=== PATIENT | male | born 1990 | race Caucasian/White ===

== ENCOUNTER 2019-01-01 13:18 | Emergency (ER) | payer OTHER ==
[~2019-01-01] VITALS: Ht 177.8 cm; Wt 76.9 kg
--- NOTE | 2019-01-01 14:00 | PHYS DOC ---
Adult General Chief Complaint Chief Complaint: HEADACHE HPI HPI 28-year-old male presents with headache for the last 3 days. Patient went to his PCP with concern of sinus infection. The advised that he come the emergency room because his heart rate was 50. Patient has no official diagnosis of abnormal bradycardia. Patient states he feels he has had nausea, vomiting, and headache the last 3 days. He had a fever of 100 yesterday. At this time his primary concern is that he has facial pressure just under his eyes. His headache is improved at this time but was located just behind his eyes. He does not have a history of chronic headaches. He denies trauma or fall. Review of Systems Review of Systems Constitutional: Fever[] Eyes: Denies change in visual acuity, redness, or eye pain [] HENT: Nasal congestion, sinus pain[] Respiratory: Denies cough or shortness of breath [] Cardiovascular: No additional information not addressed in HPI [] GI: Denies abdominal pain, nausea, vomiting, bloody stools or diarrhea [] : Denies dysuria or hematuria [] Musculoskeletal: Denies back pain or joint pain [] Integument: Denies rash or skin lesions [] Neurologic: Frontal headache[] Endocrine: Denies polyuria or polydipsia [] All other systems were reviewed and found to be within normal limits, except as documented in this note. Current Medications Current Medications Current Medications Medications (Trade) Dose Ordered Sig/Otilio Start Time Stop Time Status Last Admin Dose Admin Diphenhydramine HCl (Benadryl) 25 mg 1X ONCE 01/01/19 13:45 01/01/19 13:46 UNV Ketorolac Tromethamine (Toradol 30mg Vial) 30 mg 1X ONCE 01/01/19 13:45 01/01/19 13:46 UNV Metoclopramide HCl (Reglan Vial) 10 mg 1X ONCE 01/01/19 13:45 01/01/19 13:46 UNV Sodium Chloride 1,000 ml @ 1,000 mls/hr 1X ONCE 01/01/19 13:45 01/01/19 14:44 UNV Physical Exam Physical Exam Constitutional: Well developed, well nourished, no acute distress, non-toxic appearance. [] HENT: Normocephalic, atraumatic, bilateral external ears normal, oropharynx moist, no oral exudates, nose normal. Left ear tympanic membrane obscured with wax. Right tympanic membrane normal [] Eyes: PERRLA, EOMI, conjunctiva normal, no discharge. [] Neck: Normal range of motion, no tenderness, supple, no stridor. [] Cardiovascular:Heart rate, 50, regular rhythm, no murmur [] Lungs & Thorax: Bilateral breath sounds clear to auscultation [] Abdomen: Bowel sounds normal, soft, no tenderness, no masses, no pulsatile masses. [] Skin: Warm, dry, no erythema, no rash. [] Back: No tenderness, no CVA tenderness. [] Extremities: No tenderness, no cyanosis, no clubbing, ROM intact, no edema. [] Neurologic: Alert and oriented X 3, normal motor function, normal sensory function, no focal deficits noted. [] Psychologic: Affect normal, judgement normal, mood normal. [] EKG EKG [] Radiology/Procedures Radiology/Procedures [] Impressions: Exam performed: CT scan of the head without contrast. Date of Service: 01/01/2019. Comparison: None available. Clinical History: Headache, low blood pressure. Technique: Helical acquisitions are obtained from the foramen magnum to the vertex without intravenous administration of contrast. Findings: The ventricles are midline without evidence of dilatation. Normal hicks-white differentiation is maintained. There is no extra axial fluid collection, intraparenchymal hemorrhage or mass lesion. The visualized portions of the orbits, paranasal sinuses and the mastoid air cells appear clear. The calvarium is intact. Impression: 1. No acute intracranial process detected. RS Compliance Statement: One or more of the following individualized dose reduction techniques were utilized for this examination: 1. Automated exposure control 2. Adjustment of the mA and/or kV according to patient size 3. Use of iterative reconstruction technique Electronically signed by: Neyda Medina MD (01/01/2019 2:25 PM) [facility] DICTATED AND SIGNED BY: NEYDA MEDINA MD DATE: 01/01/19 4549 CC: CHRIS HAMILTON DO; PCP,NO Course & Med Decision Making Course & Med Decision Making Pertinent Labs and Imaging studies reviewed. (See chart for details) Asians labs are unremarkable. His head CT is unremarkable. I've given 1 L normal saline, 30 mg of Toradol, 25 mg of Benadryl, 10 mg Reglan. He is feeling better at this time. I believe he does has a viral illness and a common ready headache. He is stable for discharge at this time. [] Dragon Disclaimer Dragon Disclaimer This electronic medical record was generated, in whole or in part, using a voice recognition dictation system. Departure Departure: Impression: Primary Impression: Viral syndrome Additional Impression: Headache Disposition: HOME, SELF-CARE Condition: STABLE Referrals: PCP,NO (PCP) Patient Instructions: General Headache Without Cause, [id number], Viral Syndrome Problem Qualifiers Additional Impression: Headache Headache type: other vascular headache Qualified Codes: G44.1 - Vascular headache, not elsewhere classified CHRIS HAMILTON DO Jan 01, 2019 14:00
[2019-01-01 14:08] LABS: BASO # 0.1 x10^3/uL (0.0-0.2); BASO % 1 % (0-3); EOS # 0.3 x10^3/uL (0.0-0.7); EOS % 3 % (0-3); HEMATOCRIT 45.6 % (39.0-53.0); HEMOGLOBIN 15.5 g/dL (13.0-17.5); LYMPH # 0.9 x10^3/uL (1.0-4.8); LYMPH % 9 % (24-48); MEAN CORPUSCULAR HEMOGLOBIN 31 pg (25-35); MEAN CORPUSCULAR HGB CONC 34 g/dL (31-37); MEAN CORPUSCULAR VOLUME 92 fL (79-100); MONO # 1.4 x10^3/uL (0.0-1.1); MONO % 15 % (0-9); NEUT # 7.2 x10^3uL (1.8-7.7); NEUT % 73 % (31-73); PLATELET COUNT 155 x10^3/uL (140-400); RED BLOOD COUNT 4.96 x10^6/uL (4.30-5.70); RED CELL DISTRIBUTION WIDTH 13.6 % (11.5-14.5); WHITE BLOOD COUNT 9.9 x10^3/uL (4.0-11.0)
[2019-01-01] MEDS: METOCLOPRAMIDE HCL 10 MG/2 ML VIAL. IV ONE (14:19)
[2019-01-01] MEDS: IV NORMAL SALINE 1,000ML 1,000 ML IV ONE (14:19)
[2019-01-01] MEDS: diphenhydrAMINE 50 MG/ML VIAL IVP ONE (14:20)
[2019-01-01] MEDS: KETOROLAC 30 MG/ML VIAL. IV ONE (14:20)
[2019-01-01 14:22] LABS: ALBUMIN 3.9 g/dL (3.4-5.0); ALBUMIN/GLOBULIN RATIO 1.2 (1.0-1.7); CALCIUM 9.2 mg/dL (8.5-10.1); CREATININE 0.9 mg/dL (0.7-1.3); TOTAL BILIRUBIN 0.5 mg/dL (0.2-1.0); TOTAL PROTEIN 7.2 g/dL (6.4-8.2)
--- NOTE | 2019-01-01 14:29 | RAD ---
Exam performed: CT scan of the head without contrast. Date of Service: 01/01/2019. Comparison: None available. Clinical History: Headache, low blood pressure. Technique: Helical acquisitions are obtained from the foramen magnum to the vertex without intravenous administration of contrast. Findings: The ventricles are midline without evidence of dilatation. Normal hicks-white differentiation is maintained. There is no extra axial fluid collection, intraparenchymal hemorrhage or mass lesion. The visualized portions of the orbits, paranasal sinuses and the mastoid air cells appear clear. The calvarium is intact. Impression: 1. No acute intracranial process detected. PQRS Compliance Statement: One or more of the following individualized dose reduction techniques were utilized for this examination: 1. Automated exposure control 2. Adjustment of the mA and/or kV according to patient size 3. Use of iterative reconstruction technique Electronically signed by: Neyda Medina MD (01/01/2019 2:25 PM) [facility]
[2019-01-01 15:11] VITALS: BP 134/67
--- NOTE | 2019-01-02 14:18 | EKG ---
[address] [address] Test Date: 2019-01-01 Test Time: 14:06:49 Pat Name: JOSHUA CAR Department: Room: Gender: M Painter Rough: [place] : 1990 Requested By: CHRIS HAMILTON Order Number: [id number] Reading MD: Ernesto White MD Measurements Intervals [place] Rate: 51 P: 59 [place]: 148 QRS: 48 QRSD: 94 T: 47 QT: 402 QTc: 372 Interpretive Statements SINUS RHYTHM Electronically Signed On 01-03-2019 11:38:08 [employer] by Ernesto White MD
== END 2019-01-01 15:59 | disposition home or self-care (01) ==
LOC: ER 13:18
DX: B34.9 Viral infection, unspecified (principal); G44.1 Vascular headache, not elsewhere classified; R11.2 Nausea with vomiting, unspecified
CPT/HCPCS: 36415; 70450; 80053; 85025; 93005; 96361; 96374; 96375; 99284; J1200; J1885; J2765; J7030